=== PATIENT | male | born 2000 | race Caucasian/White ===

== ENCOUNTER 2025-03-12 17:07 | Emergency (ER) | payer SELFPAY ==
[~2025-03-12] VITALS: Ht 177.8 cm; Wt 91.0 kg
[2025-03-12 17:36] VITALS: O2SAT 100
[2025-03-12] MEDS: TETANUS, DIPHTHERIA, PERTUSSIS VAC/PF 0.5ML (>10YR OLD) IM ONE (19:56)
[2025-03-12] MEDS ORDERED: AMOX1TAB16 MT (20:28)
[2025-03-12] MEDS: LIDOCAINE HCL 1% 20ML VIAL INFIL ONE (20:35)
[2025-03-12 21:02] VITALS: BP 135/82; PULSE 60; RESP 16; TEMP 36.9; O2SAT 99
== END 2025-03-12 21:08 | disposition home or self-care (01) ==
LOC: ER 17:07
DX: S61.412A Laceration without foreign body of left hand, initial encounter (principal); E11.9 Type 2 diabetes mellitus without complications; W50.0XXA Accidental hit or strike by another person, initial encounter; Y93.89 Activity, other specified; Y92.89 Other specified places as the place of occurrence of the external cause; Y99.8 Other external cause status
CPT/HCPCS: 99283; 73130; 90715; 29125; 90471; 12002; A6449